=== PATIENT | male | born 1970 | race Caucasian/White ===

== ENCOUNTER 2021-12-25 13:08 | Outpatient (CLI) | payer SELFPAY ==
--- NOTE | 2021-12-25 08:15 | DI.RAD_ITS ---
Exam(s) XR ANKLE LT COMPLETE EXAM: XR ANKLE LT COMPLETE CLINICAL HISTORY: left ankle injury, s99.910p TECHNIQUE: 2D digital imaging was performed of the left ankle. Three images were obtained. AP, lat eral and oblique views were obtained. COMPARISON: No exams were available for comparison FINDINGS: BONES: There is an acute oblique fracture of the distal fibula it occurs at the level of the ankle kane int. On the lateral view, there also appears to be a nondisplaced posterior malleolar fracture. The re is a minimally displaced medial malleolar fracture. No bony destructive lesion is seen. JOINTS:The ankle mortise is normally aligned. SOFT TISSUE: Diffuse soft tissue swelling of the ankle is noted. IMPRESSION: Trimalleolar fracture. DATA REPOSITORY: RADIATION DOSE DELIVERED:
== END 2021-12-25 13:28 ==
LOC: DI 13:09
PROVIDERS: Visit Provider Physician Assistant
DX: S82.852A Displaced trimalleolar fracture of left lower leg, initial encounter for closed fracture (principal); X58.XXXA Exposure to other specified factors, initial encounter
CPT/HCPCS: 73610